=== PATIENT | male | born 1965 | race Caucasian/White ===

== ENCOUNTER → 2024-08-25 10:49 | Outpatient (REF) | payer OTHER, SELFPAY | LOC: RAD 10:49 | PROVIDERS: ATTENDING PHYSICIAN Student in an Organized Health Care Education/Training Program | DX: M51.34 Other intervertebral disc degeneration, thoracic region (principal); S22.060S Wedge compression fracture of T7-T8 vertebra, sequela; F17.200 Nicotine dependence, unspecified, uncomplicated | CPT/HCPCS: 77080 ==

== ENCOUNTER → 2024-08-29 10:17 | Outpatient (REF) | payer OTHER, SELFPAY | LOC: HWRAD 10:17 | PROVIDERS: ATTENDING PHYSICIAN Student in an Organized Health Care Education/Training Program | DX: F17.210 Nicotine dependence, cigarettes, uncomplicated (principal) | CPT/HCPCS: 71271 ==

== ENCOUNTER → 2024-09-12 07:16 | Outpatient (REF) | payer OTHER, SELFPAY | LOC: HWRAD 07:16 | PROVIDERS: ATTENDING PHYSICIAN Student in an Organized Health Care Education/Training Program | DX: R06.2 Wheezing (principal); R06.02 Shortness of breath | CPT/HCPCS: 71046 ==

== ENCOUNTER → 2024-09-25 07:45 | Outpatient (REF) | payer OTHER, SELFPAY | LOC: RSP 07:45 | PROVIDERS: ATTENDING PHYSICIAN Student in an Organized Health Care Education/Training Program | DX: R06.2 Wheezing (principal); R06.02 Shortness of breath | CPT/HCPCS: 94727; 94729; 88738; 94060 ==

== ENCOUNTER 2024-11-05 08:12 | Emergency (ER) | payer SELFPAY ==
[2024-11-05 08:21] VITALS: BP 120/83
--- NOTE | 2024-11-05 09:45 | ED.GENMED ---
History of Present Illness
General
Chief Complaint: Skin Surface Trauma
Source: patient
Exam Limitations: none
Time Seen by Provider: 11/05/24 09:14
Nursing documentation reviewed up to this point in time: agreed with
History of Present Illness
History of Present Illness:
58-year-old male with history as noted presents for right leg laceration. Patient was opening a wax container at work using a straight edge which slipped and caused a small laceration to the right balbuena. He says that it was bleeding very heavily
which prompted ER visit. Unsure of his last tetanus.
Past History
Past History
ED Past Medical History: None
ED Past Surgical History: None
Social History
Tobacco: Smoker (1ppd)
Alcohol: Daily
Drug: None
Personal:
Living: with family
Employment: Employed
Review of Systems
Review of Systems
All Other Systems: ROS reviewed and negative except as documented in HPI and ROS
Skin: Reports other (Laceration)
Phy Exam
Physical Exam
Physical Exam:
Patient has small 0.5 cm linear laceration to the right anterior/medial balbuena which fortunately is currently hemostatic; on wound exploration relatively superficial no exposed vasculature or even subcutaneous fat noted
Scores
Heart Failure Risk
Heart Failure Risk Score: Not Applicable
Heart Score for Chest Pain Patients
STEMI patient?: Not applicable
Withdrawal Assessment of Alcohol
Withdrawal Assessment Completed?: Not applicable
Course
Orders/Labs/Results
Orders:
Orders
11/05/24 09:43
Tetanus/Diphth/Acelpertussis [Adacel] 0.5 ml IM .ONCE ONE
Vital Signs
Initial and Last Documented VS:
Initial Vital Signs
Temp Pulse Resp BP Pulse Ox
36.7 C 71 18 120/83 97
11/05/24 08:21 11/05/24 08:21 11/05/24 08:21 11/05/24 08:21 11/05/24 08:21
Last Documented Vital Signs
Temp Pulse Resp BP Pulse Ox
36.7 C 71 18 120/83 97
11/05/24 08:21 11/05/24 08:21 11/05/24 08:21 11/05/24 08:21 11/05/24 08:21
Procedures
Laceration Closure
Right Leg:
Status of Wound: clean
Size of Wound in cm: 0.5
Description of Wound Edges: sharp
Preparation: cleaned with saline
Revision/Debridement: routine- no revision
Type of Closure: single layer closure
Skin Closure Material: 4-0 vicryl
Number of sutures: 1
MDM/Problems Addressed
Differential Diagnosis Includes:
Leg laceration
MDM/Problems Addressed:
58-year-old male presents with a small laceration to the leg as described above. Tetanus updated here. Wound cleaned and single suture placed. Stable for discharge.
*Pulse Oximetry
SaO2: 97
Oxygen Mode of Delivery: Room air
Patient hypoxic: no (97%)
*Critical Care Note
Total Time (30-74mins, 75-104mins- exclusive of procedures): Not Applicable
Data Reviewed
Source: patient
ED Attending Note
-
Portions of this chart may have been created with voice recognition software.� Occasional wrong word or��sound alike� substitutions may have occurred due to the inherent limitations of voice recognition software.
Discharge Plan
Departure
Patient Disposition: Home (Routine Discharge)
Date of Disposition: 11/05/24
Time of Disposition: 09:44
Patient with high blood pressure during this ER visit?: No
Discharge Problem:
Laceration of leg
Instructions: Laceration Repair With Stitches (DC)
Prescriptions:
No Action
lorazepam 1 MG tablet
1 mg PO TID Qty: 6 0RF
Referrals:
Courtney Hinson MD, Resident [Family Provider, General]
Activity Restrictions/Additional Instructions:
If you notice any signs of infection including redness, significant swelling, increased pain or drainage from the area you should return immediately to the emergency room to be reassessed.
Thank you for visiting the Emergency Department at [facility].
1. Please schedule a follow up appointment as directed. Call first thing tomorrow morning to make an appointment.
2. If indicated, please take your medications as instructed and indicated on discharge paperwork.
3. If any of your symptoms do not improve, or persist, or become more severe within 6-12 hours, please return to the emergency department for further care.
4. Please return to the emergency department if you develop a headache, neck pain/stiffness, fever greater than 100.4F, chest pain, shortness of breath, persistent nausea, vomiting, slurred speech, difficulty walking, numbness/tingling, weakness,
signs of infection or any other symptoms that are worrisome to you.
Please call [phone] if you have any questions.
Interventions
Interventions:
*Risk Screen - Suicide Last Done: 11/05/24 08:21
*General Assessment Last Done: 11/05/24 08:21
Discharge Date and Time
Print Language: [email or web address]
[2024-11-05] MEDS: ADACEL 0.5 ML IM (10:04)
== END 2024-11-05 10:19 | disposition home or self-care (01) ==
LOC: EMR 08:12
PROVIDERS: EMERGENCY PHYSICIAN Emergency Medicine; FAMILY PHYSICIAN Student in an Organized Health Care Education/Training Program
DX: S81.811A Laceration without foreign body, right lower leg, initial encounter (principal); W26.8XXA Contact with other sharp object(s), not elsewhere classified, initial encounter; Y99.0 Civilian activity done for income or pay; Z23 Encounter for immunization; F17.200 Nicotine dependence, unspecified, uncomplicated
CPT/HCPCS: 99282; 12001; 90471; 90715